=== PATIENT | male | born 1930 | race Caucasian/White ===

== ENCOUNTER 2017-12-26 08:14 | Emergency (ER) | payer MEDICARE, BC ==
[2017-12-26] MEDS ORDERED: Ondansetron 4 MG/2 ML SDV IVPUSH ONE (09:00)
[2017-12-26] MEDS ORDERED: Sodium Chloride 0.9% 1,000 ML IV SCH ×2 (09:00→12:45)
--- NOTE | 2017-12-26 09:06 | EDM.PDOC ---
ED HPI GENERAL MEDICAL PROBLEM - General Chief Complaint: Neuro Symptoms/Deficits Stated Complaint: LOSS OF COORDINATION/WEAKNESS/STROKE?? Time Seen by Provider: 12/26/17 09:05 Source of Information: Reports: Patient History Limitations: Reports: No Limitations - History of Present Illness INITIAL COMMENTS - FREE TEXT/NARRATIVE: pt was confused yesterday and still having some problem thinking today. Onset: Gradual Duration: Day(s): Location: Reports: Generalized Associated Symptoms: Reports: Weakness - Related Data Allergies Allergy/AdvReac Type Severity Reaction Status Date / Time erythromycin base Allergy Liver Verified 07/14/16 02:31 Problems Penicillins Allergy Hives Verified 07/14/16 02:31 Home Meds: Home Meds Aspirin [Ecotrin] 81 mg PO DAILY 12/23/15 [History] Calcium Carbonate/Vitamin D3 [Calcium Carbonate/Vitamin D 1250 MG-200 Unit] 600 mg PO DAILY 12/23/15 [History] Clopidogrel [Plavix] 75 mg PO DAILY 12/23/15 [History] Folic Acid 400 mcg PO BID 12/23/15 [History] Metoprolol Tartrate [Lopressor] 25 mg PO BID 12/23/15 [History] amLODIPine [Norvasc] 5 mg PO DAILY 12/23/15 [History] Past Medical History HEENT History: Reports: Impaired Vision Cardiovascular History: Reports: Bypass, High Cholesterol Genitourinary History: Reports: Other (See Below) Other Genitourinary History: past uti Musculoskeletal History: Reports: Arthritis, Fracture Other Musculoskeletal History: l elbow Neurological History: Reports: Seizure, TIA - Infectious Disease History Infectious Disease History: Reports: Chicken Pox, Mumps, Rubella - Past Surgical History Cardiovascular Surgical History: Reports: Coronary Artery Bypass GI Surgical History: Reports: Appendectomy, Cholecystectomy Social & Family History - Tobacco Use Smoking Status *Q: Former Smoker Years of Tobacco use: 10 Used Tobacco, but Quit: Yes Month/Year Tobacco Last Used: Second Hand Smoke Exposure: Yes - Caffeine Use Caffeine Use: Reports: Coffee - Recreational Drug Use Recreational Drug Use: No ED ROS GENERAL - Review of Systems Review Of Systems: See Below Constitutional: Reports: No Symptoms HEENT: Reports: No Symptoms Respiratory: Reports: No Symptoms Cardiovascular: Reports: No Symptoms Endocrine: Reports: No Symptoms GI/Abdominal: Reports: No Symptoms : Reports: No Symptoms Musculoskeletal: Reports: Other (pt felt like he was not as coordinated and not able to do things as well as usual. ) Skin: Reports: No Symptoms Neurological: Reports: Other (pt talked about being confused but he answered all questions well. ) Psychiatric: Reports: No Symptoms ED EXAM, NEURO - Physical Exam Exam: See Below Text/Narrative:: pt arrived with a history of not funtioning as well as usual . Exam Limited By: No Limitations General Appearance: Alert, Anxious, Other (pupils equal and reactive) Ears: Normal TMs Nose: Normal Inspection Throat/Mouth: Normal Inspection Head Exam: Atraumatic Neck: Normal Inspection Respiratory/Chest: No Respiratory Distress Cardiovascular: Regular Rate, Rhythm GI/Abdominal: Soft, Non-Tender (Male) Exam: Deferred Rectal (Males) Exam: Deferred Neurological: Alert Back Exam: Normal Inspection Extremities: Normal Inspection Psychiatric: Normal Affect Course - Vital Signs Last Recorded V/S: Last Vital Signs Temp 36.4 C 12/26/17 13:51 Pulse 74 12/26/17 13:51 Resp 16 12/26/17 13:51 BP 126/59 L 12/26/17 13:51 Pulse Ox 98 12/26/17 13:51 Orthostatic Blood Pressure [ 134/68 Standing] Orthostatic Blood Pressure [ 127/67 Sitting] Orthostatic Blood Pressure [ 137/52 Supine] - Orders/Labs/Meds Orders: Active Orders 24 hr Category Date Time Status EKG Documentation Completion [RC] ASDIRECTED Care 12/26/17 08:34 Active Orthostatic Vital Signs [RC] ASDIRECTED Care 12/26/17 09:25 Active UA W/MICROSCOPIC [URIN] Urgent Lab 12/26/17 08:54 Ordered Sodium Chloride 0.9% [Normal Saline] 1,000 ml Med 12/26/17 09:00 Active IV ASDIRECTED EKG 12 Lead [EK] Routine Ther 12/26/17 08:33 Ordered Medication Orders Sodium Chloride (Normal Saline) 1,000 mls @ 400 mls/hr IV ASDIRECTED ELIZABETH Last Admin: 12/26/17 09:28 Dose: 400 mls/hr Labs: Laboratory Tests 12/26/17 12/26/17 12/26/17 Range/Units 08:38 08:38 08:38 WBC 5.1 (4.5-11.0) K/uL RBC 4.40 (4.30-5.90) M/uL Hgb 13.3 (12.0-15.0) g/dL Hct 40.2 (40.0-54.0) % MCV 91 (80-98) fL MCH 30 (27-31) pg MCHC 33 (32-36) % Plt Count 251 (150-400) K/uL Neut % (Auto) 66 (36-66) % Lymph % (Auto) 13 L (24-44) % [place] % (Auto) 20 H (2-6) % Eos % (Auto) 1 L (2-4) % Baso % (Auto) 0 (0-1) % Sodium 132 L (140-148) mmol/L Potassium 3.5 L (3.6-5.2) mmol/L Chloride 97 L (100-108) mmol/L Carbon Dioxide 27 (21-32) mmol/L Anion Gap 11.5 (5.0-14.0) mmol/L BUN 15 (7-18) mg/dL Creatinine 1.0 (0.8-1.3) mg/dL Est Cr Clr Drug Dosing 43.41 mL/min Estimated GFR (MDRD) > 60 (>60) Glucose 157 H (74-106) mg/dL Calcium 8.2 L (8.5-10.1) mg/dL Total Bilirubin 0.7 (0.2-1.0) mg/dL AST 23 (15-37) U/L ALT 21 (12-78) U/L Alkaline Phosphatase 94 (46-116) U/L Troponin I < 0.017 (0.000-0.056) ng/mL C-Reactive Protein (0.0-0.3) mg/dL Total Protein 6.7 (6.4-8.2) g/dL Albumin 3.0 L (3.4-5.0) g/dL Globulin 3.7 H (2.3-3.5) g/dL Albumin/Globulin Ratio 0.8 L (1.2-2.2) TSH, Ultra Sensitive (0.358-3.740) uIU/mL Urine Color Urine Appearance Urine pH (4.5-8.0) Ur Specific [place] (1.008-1.030) Urine Protein (NEGATIVE) mg/dL Urine Glucose (UA) (NEGATIVE) mg/dL Urine Ketones (NEGATIVE) mg/dL Urine Occult Blood (NEGATIVE) Urine Nitrite (NEGAITVE) Urine Bilirubin (NEGATIVE) Urine Urobilinogen (NORMAL) mg/dL Ur Leukocyte Esterase (NEGATIVE) Urine RBC (0-5) Urine WBC (0-5) Ur Epithelial Cells Amorphous Sediment Urine Bacteria Urine Mucus Urine Other 12/26/17 12/26/17 12/26/17 Range/Units 08:54 09:02 10:38 WBC (4.5-11.0) K/uL RBC (4.30-5.90) M/uL Hgb (12.0-15.0) g/dL Hct (40.0-54.0) % MCV (80-98) fL MCH (27-31) pg MCHC (32-36) % Plt Count (150-400) K/uL Neut % (Auto) (36-66) % Lymph % (Auto) (24-44) % [place] % (Auto) (2-6) % Eos % (Auto) (2-4) % Baso % (Auto) (0-1) % Sodium (140-148) mmol/L Potassium (3.6-5.2) mmol/L Chloride (100-108) mmol/L Carbon Dioxide (21-32) mmol/L Anion Gap (5.0-14.0) mmol/L BUN (7-18) mg/dL Creatinine (0.8-1.3) mg/dL Est Cr Clr Drug Dosing mL/min Estimated GFR (MDRD) (>60) Glucose (74-106) mg/dL Calcium (8.5-10.1) mg/dL Total Bilirubin (0.2-1.0) mg/dL AST (15-37) U/L ALT (12-78) U/L Alkaline Phosphatase (46-116) U/L Troponin I (0.000-0.056) ng/mL C-Reactive Protein 0.82 H (0.0-0.3) mg/dL Total Protein (6.4-8.2) g/dL Albumin (3.4-5.0) g/dL Globulin (2.3-3.5) g/dL Albumin/Globulin Ratio (1.2-2.2) TSH, Ultra Sensitive 3.273 (0.358-3.740) uIU/mL Urine Color Yellow Urine Appearance Slightly cloudy Urine pH 6.0 (4.5-8.0) Ur Specific [place] 1.015 (1.008-1.030) Urine Protein Negative (NEGATIVE) mg/dL Urine Glucose (UA) Normal (NEGATIVE) mg/dL Urine Ketones Negative (NEGATIVE) mg/dL Urine Occult Blood Negative (NEGATIVE) Urine Nitrite Negative (NEGAITVE) Urine Bilirubin Small (NEGATIVE) Urine Urobilinogen Normal (NORMAL) mg/dL Ur Leukocyte Esterase Negative (NEGATIVE) Urine RBC Not seen (0-5) Urine WBC Not seen (0-5) Ur Epithelial Cells Not seen Amorphous Sediment Many Urine Bacteria Not seen Urine Mucus Moderate Urine Other See note Meds: Medications Generic Name Dose Route Start Last Admin Trade Name Freq PRN Reason Stop Dose Admin Sodium Chloride 1,000 mls @ 400 mls/hr 12/26/17 09:00 12/26/17 09:28 Normal Saline IV 400 mls/hr ASDIRECTED ELIZABETH Administration Discontinued Medications Generic Name Dose Route Start Last Admin Trade Name Freq PRN Reason Stop Dose Admin Sodium Chloride 1,000 mls @ 400 mls/hr 12/26/17 12:45 12/26/17 12:45 Normal Saline IV 12/26/17 15:14 400 mls/hr ASDIRECTED ELIZABETH Administration Ondansetron HCl 4 mg 12/26/17 09:00 12/26/17 09:25 Zofran IVPUSH 12/26/17 09:01 4 mg ONETIME ONE Administration - Re-Assessments/Exams Free Text/Narrative Re-Assessment/Exam: 12/26/17 15:40 pt is alert and answering questions well, he appears to be very alert. His head scan was normal. His lab looks good. His ekg was normal\l. He had lunch and ate well. He was hydrated with 2 liters of fluids. He is feeling better. His daughter was gomes\ed and she felt she could come and be with him some. She will check on him Departure - Departure Time of Disposition: 15:43 Disposition: Home, Self-Care 01 Condition: Fair Clinical Impression: Dehydration - Discharge Information Referrals: Jin Fernando, [employer] [Primary Care Provider] - Forms: ED Department Discharge Care Plan Goals: daughter to be his support system, appt at the clinic on Saturday. , encourage fluids, cont same meds. - My Orders Last 24 Hours: My Active Orders 12/26/17 08:33 EKG 12 Lead [EK] Routine 12/26/17 08:34 EKG Documentation Completion [RC] ASDIRECTED 12/26/17 08:54 UA W/MICROSCOPIC [URIN] Urgent 12/26/17 09:00 Sodium Chloride 0.9% [Normal Saline] 1,000 ml IV ASDIRECTED 12/26/17 09:25 Orthostatic Vital Signs [RC] ASDIRECTED - Assessment/Plan Last 24 Hours: My Active Orders 12/26/17 08:33 EKG 12 Lead [EK] Routine 12/26/17 08:34 EKG Documentation Completion [RC] ASDIRECTED 12/26/17 08:54 UA W/MICROSCOPIC [URIN] Urgent 12/26/17 09:00 Sodium Chloride 0.9% [Normal Saline] 1,000 ml IV ASDIRECTED 12/26/17 09:25 Orthostatic Vital Signs [RC] ASDIRECTED
--- NOTE | 2017-12-26 09:46 | CT ---
Head CT wo Cont CLINICAL HISTORY: Confusion COMPARISON: 2009 TECHNIQUE: Transverse scans were obtained from the base of the skull through the vertex without IV co ntrast on a multislice, multidetector CT scanner. Auto dosage reduction and iterative reconstruction techniques employed. FINDINGS: The patient is tilted in the gantry.. There is no mass effect, hemorrhage, or extraaxial co llection. The basal cisterns and sulci over the convexities are prominent. The ventricles are promine nt. IMPRESSION: Moderate age-related atrophy. No focal lesion, hemorrhage or extra-axial collection
--- NOTE | 2017-12-26 10:01 | CR ---
CHEST: 2 view CLINICAL HISTORY:Shortness of breath, confusion COMPARISON:None FINDINGS: Patient has had prior sternotomy. There are atherosclerotic changes in the aorta. There is some elevation of the left hemidiaphragm which is likely chronic. No infiltrates are seen there is n o pleural effusion. The lungs are hyperaerated. IMPRESSION: Previous coronary artery bypass Chronic elevation left hemidiaphragm Emphysematous changes
[2017-12-26 13:53] VITALS: BP 126/59
== END 2017-12-26 16:15 | disposition home or self-care (01) ==
LOC: JP.ED 08:14
DX: E86.0 Dehydration (principal); E78.00 Pure hypercholesterolemia, unspecified; M19.90 Unspecified osteoarthritis, unspecified site; Z87.891 Personal history of nicotine dependence; Z79.899 Other long term (current) drug therapy; Z79.82 Long term (current) use of aspirin; Z88.1 Allergy status to other antibiotic agents; Z88.0 Allergy status to penicillin
CPT/HCPCS: 36415; 70450; 71046; 80053; 81001; 84443; 84484; 85025; 86140; 93005; 96361; 96374; 99285; J2405; J7030